=== PATIENT | female | born 1960 | race African-American/Black ===

== ENCOUNTER → 2018-09-13 | Day surgery (SDC) | payer OTHER ==
--- NOTE | 2018-09-14 11:22 | PATH ---
Cytology Non-Gynecological Report Patient Name: SHANNAN DENNIS [facility]. Rec. #: [id number] /Age/Gender: 1960 (Age: 58) / F Account: [id number] Location: RADIOLOGY INTER Taken: 09/13/2018 Received: 09/13/2018 Reported: 09/14/2018 Physicians: Emmanuel Rios M.D. Specimen(s) Received LEFT THYROID FNA Clinical History Thyroid nodule Final Diagnosis THYROID, LEFT, FINE NEEDLE ASPIRATION: SATISFACTORY FOR EVALUATION. B[place] CLASS II: BENIGN. CYTOLOGIC FINDINGS ARE CONSISTENT WITH A BENIGN FOLLICULAR NODULE. SMALL FOLLICULAR CELLS, RARE MACROPHAGES, AND COLLOID PRESENT. Electronically Signed Mikayla Oh M.D. Gross Description Received are eight direct smears, four of which are air-dried and Diff-Quik stained, and four of which are alcohol fixed and Pap stained. Also received is 20 ml of bloody formalin from which one cellblock is prepared.
== END | disposition home or self-care (01) ==
LOC: JRADIR 09:09
PROVIDERS: ATTEND Internal Medicine Endocrinology, Diabetes & Metabolism
PROC: 0G9G3ZX Drainage of Left Thyroid Gland Lobe, Percutaneous Approach, Diagnostic (ICD-10-PCS; principal; 2018-09-13)
DX: E04.1 Nontoxic single thyroid nodule (principal)
CPT/HCPCS: 76942; 88173; 88305-TC